=== PATIENT | female | born 1960 | race Caucasian/White ===

== ENCOUNTER 2019-06-17 10:44 | Emergency (ER) | payer MEDICARE, MEDICAID ==
--- NOTE | 2019-06-17 11:43 | EDM.PDOC ---
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 She felt she was going to faint. Over the next hour she became diaphoretic, lightheaded, nauseous and just felt "awful". She had no chest pressure or shortness of breath. She started to feel better but went into the clinic to get checked because it scared her, labs were drawn and an EKG done and she had inverted T waves in the lateral leads so was sent to the emergency room. Her electrolytes and CBC were reassuring. On arrival to the emergency room she was asymptomatic. She again emphasized that she had no chest pain or shortness of breath during this episode. She does have a previous EKG from 3 years ago which shows similar voltage, similar bundle branch block but the T- wave inversion in V5 and V6 is more pronounced. She is a "borderline" diabetic. Onset: Sudden (Symptoms started fairly suddenly 4 to 5 hours ago) Location: Reports: Generalized Associated Symptoms: Reports: Diaphoresis, Headaches (She did have a headache this morning, but she is a "headache person".), Malaise, Weakness. Denies: Chest Pain, Fever/Chills, Shortness of Breath - Related Data Allergies Allergy/AdvReac Type Severity Reaction Status Date / Time aspirin Allergy Cannot Verified 06/17/19 11:00 Remember bupropion HCl Allergy Cannot Verified 06/17/19 11:00 [From Wellbutrin] Remember mirtazapine [From Remeron] Allergy Cannot Verified 06/17/19 11:00 Remember morphine Allergy Cannot Verified 06/17/19 11:00 Remember topiramate [From Topamax] Allergy Cannot Verified 06/17/19 11:00 Remember Home Meds: Home Meds Albuterol Sulfate [Proair Hfa] 8.5 gm IH QID PRN 01/10/16 [History] Albuterol [Proventil] 2.5 mg INH QIDRT PRN 01/10/16 [History] Carvedilol [Coreg] 25 mg PO DAILY 01/10/16 [History] Cholecalciferol (Vitamin D3) [Vitamin D3] 5,000 unit PO DAILY 01/10/16 [History] Ferrous Fumarate 324 mg PO DAILY 01/10/16 [History] Levothyroxine [Synthroid] 88 mcg PO ACBREAKFAST 01/10/16 [History] Loratadine [Claritin] 10 mg PO DAILY 01/10/16 [History] Melatonin 5 mg PO BEDTIME PRN 01/10/16 [History] Multivitamin [Chewable Multi Vitamin] 1 each PO DAILY 01/10/16 [History] Rizatriptan Benzoate [Maxalt] 10 mg PO ASDIRECTED PRN 01/10/16 [History] Sennosides [Senokot] 8.6 mg PO BEDTIME 01/10/16 [History] Venlafaxine [Effexor] 75 mg PO DAILY 01/10/16 [History] Vitamin B Complex [B-100 Complex] 1 each PO DAILY 01/10/16 [History] Diclofenac Sodium [Voltaren] 75 mg PO BIDMEALS 06/17/19 [History] Past Medical History HEENT History: Reports: Hard of Hearing, Impaired Vision Other HEENT History: wears glasses Cardiovascular History: Reports: Arrhythmia, Cardiomyopathy, High Cholesterol, Hypertension, SOB on Exertion, Other (See Below) Other Cardiovascular History: 2nd degree heart block Respiratory History: Reports: Asthma, COPD, Sleep Apnea, SOB, Other (See Below) Other Respiratory History: uses CPAP Gastrointestinal History: Reports: Chronic Constipation, Gastritis Genitourinary History: Reports: None LEGAL REFEREE History: Reports: Dysfunctional Uterine Bleeding Musculoskeletal History: Reports: Arthritis Neurological History: Reports: Migraines Psychiatric History: Reports: Anxiety, Depression, Panic Attack Endocrine/Metabolic History: Reports: Hypothyroidism, Obesity/BMI 30+, Vitamin D Deficiency Hematologic History: Reports: B12 Deficiency, Iron Deficiency - Infectious Disease History Infectious Disease History: Reports: Chicken Pox, Measles, Mumps - Past Surgical History Head Surgeries/Procedures: Reports: None HEENT Surgical History: Reports: None Cardiovascular Surgical History: Reports: None Respiratory Surgical History: Reports: None GI Surgical History: Reports: Bariatric Procedure, Cholecystectomy, Colonoscopy , EGD, Esophageal Dilatation Female Surgical History: Reports: Hysterectomy, Salpingo-Oophorectomy, Other (See Below) Endocrine Surgical History: Reports: None Neurological Surgical History: Reports: None Musculoskeletal Surgical History: Reports: Arthroscopic Knee, Carpal Tunnel Dermatological Surgical History: Reports: None Social & Family History - Family History Family Medical History: Noncontributory - Tobacco Use Smoking Status *Q: Current Every Day Smoker Years of Tobacco use: 35 Packs/Tins Daily: 0.5 Used Tobacco, but Quit: No Second Hand Smoke Exposure: No - Caffeine Use Caffeine Use: Reports: Coffee - Recreational Drug Use Recreational Drug Use: No ED ROS GENERAL - Review of Systems Review Of Systems: See Below Constitutional: Denies: Fever, Chills HEENT: Denies: Vision Change Respiratory: Denies: Shortness of Breath Cardiovascular: Denies: Chest Pain Endocrine: Reports: Fatigue GI/Abdominal: Reports: Nausea. Denies: Vomiting Skin: Reports: Diaphoresis Neurological: Reports: Dizziness Psychiatric: Reports: No Symptoms ED EXAM, GENERAL - Physical Exam Exam: See Below Exam Limited By: No Limitations General Appearance: Alert, No Apparent Distress Eye Exam: Bilateral Eye: Normal Inspection Respiratory/Chest: No Respiratory Distress, Lungs Clear Cardiovascular: Regular Rate, Rhythm. No: Tachycardia, Extra Beats GI/Abdominal: Soft, Non-Tender Extremities: Normal Inspection. No: Pedal Edema Neurological: Alert, Oriented Course - Vital Signs Last Recorded V/S: Last Vital Signs Temp 96.6 F 06/17/19 11:16 Pulse 58 L 06/17/19 12:13 Resp 14 06/17/19 12:13 BP 180/91 H 06/17/19 12:20 Pulse Ox 92 L 06/17/19 11:32 - Orders/Labs/Meds Labs: Laboratory Tests 06/17/19 Range/Units 11:45 Troponin I < 0.017 (0.000-0.056) ng/mL - Re-Assessments/Exams Free Text/Narrative Re-Assessment/Exam: 06/17/19 11:43 EKG and labs from the clinic were reviewed, troponin was drawn here in the emergency room and patient was kept on cardiac monitoring. 06/17/19 12:23 Patient remained in a mild sinus bradycardia, was asymptomatic and her troponin was 0. previous EKGs from 3 years ago were not significantly different. No need for hospitalization at this time, she can increase activity as tolerated and return if symptoms recur. Departure - Departure Time of Disposition: 12:29 Disposition: Home, Self-Care 01 Clinical Impression: Vasovagal near-syncope Instructions: Near-Syncope, [id number] Referrals: Miriam Aguilar MD [Primary Care Provider] - Forms: ED Department Discharge Care Plan Goals: Continue current medications, increase activity as tolerated and return if symptoms are recurring or persistent. Rest today.
[2019-06-17 12:14] VITALS: PULSE 58
[2019-06-17 12:21] VITALS: BP 180/91
== END 2019-06-17 12:29 | disposition home or self-care (01) ==
LOC: JP.ED 10:44
DX: R55 Syncope and collapse (principal); E78.00 Pure hypercholesterolemia, unspecified; I10 Essential (primary) hypertension; J44.9 Chronic obstructive pulmonary disease, unspecified; F41.9 Anxiety disorder, unspecified; F32.9 Major depressive disorder, single episode, unspecified; E03.9 Hypothyroidism, unspecified; F17.210 Nicotine dependence, cigarettes, uncomplicated; Z79.82 Long term (current) use of aspirin; Z88.5 Allergy status to narcotic agent; Z88.8 Allergy status to other drugs, medicaments and biological substances; Z79.899 Other long term (current) drug therapy
CPT/HCPCS: 36415; 84484; 99284

== ENCOUNTER 2019-06-17 20:55 | Emergency (ER) | payer MEDICARE, MEDICAID ==
[2019-06-17] MEDS ORDERED: Sodium Chloride 0.9% 1,000 ML IV SCH (23:15)
[2019-06-18] MEDS ORDERED: Ondansetron 4 MG/2 ML SDV IVPUSH ONE (00:02)
--- NOTE | 2019-06-18 00:02 | EDM.PDOC ---
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 The whole week has been very hot. She still is feeling dizzy and shakey. She was seen at the clinic and then later at the [facility] by Dr Gil. She had a trop and was watched and was advised to hydrate. This evening she was still very shakey so she did come back. Onset: Gradual Duration: Hour(s): Location: Reports: Chest Associated Symptoms: Reports: Diaphoresis, Weakness, Other ( slight nausea. ) Headache Pain Score (Numeric/FACES): 7 - Related Data Allergies Allergy/AdvReac Type Severity Reaction Status Date / Time aspirin Allergy Cannot Verified 06/17/19 11:00 Remember bupropion HCl Allergy Cannot Verified 06/17/19 11:00 [From Wellbutrin] Remember mirtazapine [From Remeron] Allergy Cannot Verified 06/17/19 11:00 Remember morphine Allergy Cannot Verified 06/17/19 11:00 Remember topiramate [From Topamax] Allergy Cannot Verified 06/17/19 11:00 Remember Home Meds: Home Meds Albuterol Sulfate [Proair Hfa] 8.5 gm IH QID PRN 01/10/16 [History] Albuterol [Proventil] 2.5 mg INH QIDRT PRN 01/10/16 [History] Carvedilol [Coreg] 25 mg PO DAILY 01/10/16 [History] Cholecalciferol (Vitamin D3) [Vitamin D3] 5,000 unit PO DAILY 01/10/16 [History] Ferrous Fumarate 324 mg PO DAILY 01/10/16 [History] Levothyroxine [Synthroid] 88 mcg PO ACBREAKFAST 01/10/16 [History] Loratadine [Claritin] 10 mg PO DAILY 01/10/16 [History] Melatonin 5 mg PO BEDTIME PRN 01/10/16 [History] Multivitamin [Chewable Multi Vitamin] 1 each PO DAILY 01/10/16 [History] Rizatriptan Benzoate [Maxalt] 10 mg PO ASDIRECTED PRN 01/10/16 [History] Sennosides [Senokot] 8.6 mg PO BEDTIME 01/10/16 [History] Venlafaxine [Effexor] 75 mg PO DAILY 01/10/16 [History] Vitamin B Complex [B-100 Complex] 1 each PO DAILY 01/10/16 [History] Diclofenac Sodium [Voltaren] 75 mg PO BIDMEALS 06/17/19 [History] Past Medical History HEENT History: Reports: Hard of Hearing, Impaired Vision Other HEENT History: wears glasses Cardiovascular History: Reports: Arrhythmia, Cardiomyopathy, High Cholesterol, Hypertension, SOB on Exertion, Other (See Below) Other Cardiovascular History: 2nd degree heart block Respiratory History: Reports: Asthma, COPD, Sleep Apnea, SOB, Other (See Below) Other Respiratory History: uses CPAP Gastrointestinal History: Reports: Chronic Constipation, Gastritis Genitourinary History: Reports: None FAMILY SERVICE AIDE History: Reports: Dysfunctional Uterine Bleeding Musculoskeletal History: Reports: Arthritis Neurological History: Reports: Migraines Psychiatric History: Reports: Anxiety, Depression, Panic Attack Endocrine/Metabolic History: Reports: Hypothyroidism, Obesity/BMI 30+, Vitamin D Deficiency Hematologic History: Reports: B12 Deficiency, Iron Deficiency - Infectious Disease History Infectious Disease History: Reports: Chicken Pox, Measles, Mumps - Past Surgical History Head Surgeries/Procedures: Reports: None HEENT Surgical History: Reports: None Cardiovascular Surgical History: Reports: None Respiratory Surgical History: Reports: None GI Surgical History: Reports: Bariatric Procedure, Cholecystectomy, Colonoscopy , EGD, Esophageal Dilatation Female Surgical History: Reports: Hysterectomy, Salpingo-Oophorectomy, Other (See Below) Endocrine Surgical History: Reports: None Neurological Surgical History: Reports: None Musculoskeletal Surgical History: Reports: Arthroscopic Knee, Carpal Tunnel Dermatological Surgical History: Reports: None Social & Family History - Family History Family Medical History: Noncontributory - Tobacco Use Smoking Status *Q: Current Every Day Smoker Years of Tobacco use: 38 Packs/Tins Daily: 0.5 Used Tobacco, but Quit: No - Caffeine Use Caffeine Use: Reports: Coffee - Recreational Drug Use Recreational Drug Use: No ED ROS GENERAL - Review of Systems Review Of Systems: See Below Constitutional: Reports: Malaise, Weakness, Decreased Appetite HEENT: Reports: No Symptoms Respiratory: Reports: No Symptoms Cardiovascular: Reports: No Symptoms Endocrine: Reports: No Symptoms GI/Abdominal: Reports: Nausea : Reports: No Symptoms Musculoskeletal: Reports: No Symptoms Skin: Reports: No Symptoms ED EXAM, GENERAL - Physical Exam Exam: See Below Free Text/Narrative:: pt arrived feeling dizzy and fatiqued. She was quite shakey. She was mildly nauseated but had not vomited. Exam Limited By: No Limitations General Appearance: Alert, No Apparent Distress, Other (pupils are equal and reactive. ) Ears: Normal TMs Nose: Normal Inspection Throat/Mouth: Normal Inspection Head: Atraumatic Neck: Normal Inspection Respiratory/Chest: No Respiratory Distress Cardiovascular: Regular Rate, Rhythm GI/Abdominal: Soft, Non-Tender (Female) Exam: Deferred Rectal (Female) Exam: Deferred Back Exam: Normal Inspection Extremities: Normal Inspection Neurological: Alert, Oriented, Normal Cognition Course - Vital Signs Last Recorded V/S: Last Vital Signs Temp 35.9 C 06/18/19 00:20 Pulse 61 06/18/19 00:20 Resp 14 06/18/19 00:20 BP 145/87 H 06/18/19 00:20 Pulse Ox 97 06/18/19 00:20 Orthostatic Blood Pressure [ 167/91 Standing] Orthostatic Blood Pressure [ 164/89 Sitting] Orthostatic Blood Pressure [ 159/83 Supine] - Orders/Labs/Meds Orders: Active Orders 24 hr Category Date Time Status Sodium Chloride 0.9% [Normal Saline] 1,000 ml Med 06/17/19 23:15 Active IV ASDIRECTED Sodium Chloride 0.9% [Normal Saline] 1,000 ml Med 06/18/19 00:15 Active IV ASDIRECTED Medication Orders Sodium Chloride (Normal Saline) 1,000 mls @ 999 mls/hr IV ASDIRECTED ANSELMO Last Admin: 06/17/19 23:14 Dose: 999 mls/hr Sodium Chloride (Normal Saline) 1,000 mls @ 999 mls/hr IV ASDIRECTED ANSELMO Last Admin: 06/18/19 00:16 Dose: 999 mls/hr Labs: Laboratory Tests 06/17/19 06/17/19 06/17/19 Range/Units 21:58 21:58 21:59 WBC 6.6 (4.5-11.0) K/uL RBC 4.48 (3.30-5.50) M/uL Hgb 14.1 (12.0-15.0) g/dL Hct 43.0 (36.0-48.0) % MCV 96 (80-98) fL MCH 32 H (27-31) pg MCHC 33 (32-36) % Plt Count 229 (150-400) K/uL Neut % (Auto) 42 (36-66) % Lymph % (Auto) 47 H (24-44) % Swift % (Auto) 8 H (2-6) % Eos % (Auto) 2 (2-4) % Baso % (Auto) 1 (0-1) % Sodium 141 (140-148) mmol/L Potassium 3.9 (3.6-5.2) mmol/L Chloride 106 (100-108) mmol/L Carbon Dioxide 24 (21-32) mmol/L Anion Gap 10.8 (5.0-14.0) mmol/L BUN 13 (7-18) mg/dL Creatinine 0.9 (0.6-1.0) mg/dL Est Cr Clr Drug Dosing 53.23 mL/min Estimated GFR (MDRD) > 60 (>60) Glucose 96 (74-106) mg/dL Calcium 9.3 (8.5-10.1) mg/dL Total Bilirubin 0.3 (0.2-1.0) mg/dL AST 18 (15-37) U/L ALT 24 (12-78) U/L Alkaline Phosphatase 131 H (46-116) U/L Troponin I (0.000-0.056) ng/mL C-Reactive Protein 0.10 (0.0-0.3) mg/dL Total Protein 7.1 (6.4-8.2) g/dL Albumin 3.6 (3.4-5.0) g/dL Globulin 3.5 (2.3-3.5) g/dL Albumin/Globulin Ratio 1.0 L (1.2-2.2) Urine Color Urine Appearance Urine pH (4.5-8.0) Ur Specific [place] (1.008-1.030) Urine Protein (NEGATIVE) mg/dL Urine Glucose (UA) (NEGATIVE) mg/dL Urine Ketones (NEGATIVE) mg/dL Urine Occult Blood (NEGATIVE) Urine Nitrite (NEGATIVE) Urine Bilirubin (NEGATIVE) Urine Urobilinogen (NORMAL) mg/dL Ur Leukocyte Esterase (NEGATIVE) Urine RBC (0-5) Urine WBC (0-5) Ur Epithelial Cells Amorphous Sediment Urine Bacteria Urine Mucus 06/17/19 06/17/19 Range/Units 22:05 22:22 WBC (4.5-11.0) K/uL RBC (3.30-5.50) M/uL Hgb (12.0-15.0) g/dL Hct (36.0-48.0) % MCV (80-98) fL MCH (27-31) pg MCHC (32-36) % Plt Count (150-400) K/uL Neut % (Auto) (36-66) % Lymph % (Auto) (24-44) % Swift % (Auto) (2-6) % Eos % (Auto) (2-4) % Baso % (Auto) (0-1) % Sodium (140-148) mmol/L Potassium (3.6-5.2) mmol/L Chloride (100-108) mmol/L Carbon Dioxide (21-32) mmol/L Anion Gap (5.0-14.0) mmol/L BUN (7-18) mg/dL Creatinine (0.6-1.0) mg/dL Est Cr Clr Drug Dosing mL/min Estimated GFR (MDRD) (>60) Glucose (74-106) mg/dL Calcium (8.5-10.1) mg/dL Total Bilirubin (0.2-1.0) mg/dL AST (15-37) U/L ALT (12-78) U/L Alkaline Phosphatase (46-116) U/L Troponin I < 0.017 (0.000-0.056) ng/mL C-Reactive Protein (0.0-0.3) mg/dL Total Protein (6.4-8.2) g/dL Albumin (3.4-5.0) g/dL Globulin (2.3-3.5) g/dL Albumin/Globulin Ratio (1.2-2.2) Urine Color Yellow Urine Appearance Clear Urine pH 6.0 (4.5-8.0) Ur Specific [place] 1.015 (1.008-1.030) Urine Protein Negative (NEGATIVE) mg/dL Urine Glucose (UA) Normal (NEGATIVE) mg/dL Urine Ketones Negative (NEGATIVE) mg/dL Urine Occult Blood Negative (NEGATIVE) Urine Nitrite Negative (NEGATIVE) Urine Bilirubin Negative (NEGATIVE) Urine Urobilinogen Normal (NORMAL) mg/dL Ur Leukocyte Esterase Negative (NEGATIVE) Urine RBC 0-5 (0-5) Urine WBC 0-5 (0-5) Ur Epithelial Cells Rare Amorphous Sediment Not seen Urine Bacteria Rare Urine Mucus Not seen Meds: Medications Generic Name Dose Route Start Last Admin Trade Name Freq PRN Reason Stop Dose Admin Sodium Chloride 1,000 mls @ 999 mls/hr 06/17/19 23:15 06/17/19 23:14 Normal Saline IV 999 mls/hr ASDIRECTED ANSELMO Administration Sodium Chloride 1,000 mls @ 999 mls/hr 06/18/19 00:15 06/18/19 00:16 Normal Saline IV 999 mls/hr ASDIRECTED ANSELMO Administration Discontinued Medications Generic Name Dose Route Start Last Admin Trade Name Freq PRN Reason Stop Dose Admin Ondansetron HCl 4 mg 06/18/19 00:02 Zofran IVPUSH 06/18/19 00:03 ONETIME ONE - Re-Assessments/Exams Free Text/Narrative Re-Assessment/Exam: 06/18/19 01:15 pt was felt to be mildly dehydrated. She was given 2 liters of fluid. she is feeling better at this time. Her repeat trop was normal. Departure - Departure Time of Disposition: 01:06 Disposition: Home, Self-Care 01 Condition: Fair Clinical Impression: Dehydration after exertion - Discharge Information Referrals: Miriam Aguilar MD [Primary Care Provider] - Forms: ED Department Discharge Care Plan Goals: push fluids, no work for the next 2 days. - My Orders Last 24 Hours: My Active Orders 06/17/19 23:15 Sodium Chloride 0.9% [Normal Saline] 1,000 ml IV ASDIRECTED 06/18/19 00:15 Sodium Chloride 0.9% [Normal Saline] 1,000 ml IV ASDIRECTED - Assessment/Plan Last 24 Hours: My Active Orders 06/17/19 23:15 Sodium Chloride 0.9% [Normal Saline] 1,000 ml IV ASDIRECTED 06/18/19 00:15 Sodium Chloride 0.9% [Normal Saline] 1,000 ml IV ASDIRECTED
[2019-06-18] MEDS ORDERED: Sodium Chloride 0.9% 1,000 ML IV SCH (00:15)
[2019-06-18 00:21] VITALS: BP 145/87; PULSE 61
== END 2019-06-18 01:25 | disposition home or self-care (01) ==
LOC: JP.ED 20:55
DX: E86.0 Dehydration (principal); E78.00 Pure hypercholesterolemia, unspecified; I10 Essential (primary) hypertension; J44.9 Chronic obstructive pulmonary disease, unspecified; F17.210 Nicotine dependence, cigarettes, uncomplicated; F41.9 Anxiety disorder, unspecified; F32.9 Major depressive disorder, single episode, unspecified; Z88.8 Allergy status to other drugs, medicaments and biological substances; Z79.899 Other long term (current) drug therapy; R55 Syncope and collapse; E03.9 Hypothyroidism, unspecified; Z79.82 Long term (current) use of aspirin; Z88.5 Allergy status to narcotic agent
CPT/HCPCS: 36415; 80053; 81001; 84484; 85025; 86140; 96360; 96361; 99283; 99284; J7030

== ENCOUNTER 2021-06-13 20:14 | Emergency (ER) | payer MEDICARE, MEDICAID ==
[2021-06-13 20:36] VITALS: BP 137/70; PULSE 69
--- NOTE | 2021-06-13 21:18 | EDM.PDOC ---
ED HPI GENERAL MEDICAL PROBLEM - General Chief Complaint: Gastrointestinal Problem Stated Complaint: BACK ACHE/STOMACHE PAIN Time Seen by Provider: 06/13/21 21:18 Source of Information: Reports: Patient History Limitations: Reports: No Limitations - History of Present Illness INITIAL COMMENTS - FREE TEXT/NARRATIVE: Patient presents emergency room today because of increasing abdominal pain she says she has had issues of constipation over the last week or so she started a clear liquid diet light meals at that time reports that she had no bowel movement last week so she went to the walk-in clinic on Saturday pain is primarily abdominal into her back she did have x-rays and a urinalysis completed that she states stated showed she had some constipation so she was started on MiraLAX she also has Bentyl at home which she has used for nominal cramping. She also took a bottle of mag citrate yesterday states that she has not had any results from using this and today she used the MiraLAX 3 times she has had a small meshlike bowel movement this morning but nothing further this afternoon she also states that she quit having cramps and has not really had any gas she does not have any vomiting secondary to history of [place] but she does feel full and like she does not want to eat patient also states that she feels like she has a fissure that has developed. She came to the emergency room because of concerns for obstruction PMH/Meds--reviewed in EMR Allergies--bupropion, mirtazapine, morphine, topiramate Onset: Gradual back pain Pain Score (Numeric/FACES): 8 - Related Data Allergies Allergy/AdvReac Type Severity Reaction Status Date / Time bupropion HCl Allergy Irritabilit Verified 06/13/21 20:59 [From Wellbutrin] y mirtazapine [From Remeron] Allergy Hallucinati Verified 06/13/21 20:59 ons morphine Allergy Anaphylactic Verified 06/13/21 20:59 Shock topiramate [From Topamax] Allergy Cannot Verified 06/17/19 11:00 Remember Home Meds: Home Meds Albuterol Sulfate [Proair Hfa] 8.5 gm IH QID PRN 01/10/16 [History] Albuterol [Proventil] 2.5 mg INH QIDRT PRN 01/10/16 [History] Cholecalciferol (Vitamin D3) [Vitamin D3] 5,000 unit PO DAILY 01/10/16 [History] Ferrous Fumarate 324 mg PO ASDIRECTED 01/10/16 [History] Levothyroxine [Synthroid] 88 mcg PO ACBREAKFAST 01/10/16 [History] Loratadine [Claritin] 10 mg PO DAILY 01/10/16 [History] Melatonin 5 mg PO BEDTIME PRN 01/10/16 [History] Multivitamin [Chewable Multi Vitamin] 1 each PO DAILY 01/10/16 [History] Rizatriptan Benzoate [Maxalt] 10 mg PO ASDIRECTED PRN 01/10/16 [History] Sennosides [Senokot] 8.6 mg PO BEDTIME 01/10/16 [History] Venlafaxine [Effexor] 75 mg PO DAILY 01/10/16 [History] Vitamin B Complex [B-100 Complex] 1 each PO DAILY 01/10/16 [History] carvediloL [Coreg] 25 mg PO DAILY 01/10/16 [History] Diclofenac Sodium [Voltaren] 75 mg PO BIDMEALS 06/17/19 [History] Eplerenone [Inspra] 25 mg PO DAILY 06/13/21 [History] Furosemide [Lasix] 20 mg PO BID 06/13/21 [History] Losartan [Cozaar] 100 mg PO DAILY 06/13/21 [History] Rosuvastatin [Crestor] 5 mg PO DAILY 06/13/21 [History] Past Medical History HEENT History: Reports: Impaired Vision, Other (See Below) Other HEENT History: wears glasses Cardiovascular History: Reports: Arrhythmia, Cardiomyopathy, High Cholesterol, Hypertension, SOB on Exertion, Other (See Below) Other Cardiovascular History: 2nd degree heart block Respiratory History: Reports: Asthma, COPD, Sleep Apnea, SOB, Other (See Below) Other Respiratory History: uses CPAP Gastrointestinal History: Reports: Chronic Constipation, Gastritis Genitourinary History: Reports: None DESIGN DRAFTER History: Reports: Dysfunctional Uterine Bleeding Musculoskeletal History: Reports: Arthritis Neurological History: Reports: Migraines Psychiatric History: Reports: Anxiety, Depression, Panic Attack, PTSD, Suicide Attempt Endocrine/Metabolic History: Reports: Hypothyroidism, Obesity/BMI 30+, Vitamin D Deficiency Hematologic History: Reports: B12 Deficiency, Iron Deficiency - Infectious Disease History Infectious Disease History: Reports: Chicken Pox, Measles, Mumps - Past Surgical History Head Surgeries/Procedures: Reports: None Cardiovascular Surgical History: Reports: None, Other (See Below) Other Cardiovascular Surgeries/Procedures: Pacer/Defib Respiratory Surgical History: Reports: None GI Surgical History: Reports: Bariatric Procedure, Cholecystectomy, Colonoscopy, EGD, Esophageal Dilatation Female Surgical History: Reports: Hysterectomy, Salpingo-Oophorectomy, Other (See Below) Other Female Surgeries/Procedures: vaginal bleeding excessive Endocrine Surgical History: Reports: None Neurological Surgical History: Reports: None Musculoskeletal Surgical History: Reports: Arthroscopic Knee, Carpal Tunnel Dermatological Surgical History: Reports: None Social & Family History - Family History Family Medical History: No Pertinent Family History - Tobacco Use Tobacco Use Status *Q: Current Every Day Tobacco User Years of Tobacco use: 5 Packs/Tins Daily: 1 - Caffeine Use Caffeine Use: Reports: Coffee - Recreational Drug Use Recreational Drug Use: No ED ROS GENERAL - Review of Systems Review Of Systems: Comprehensive ROS is negative, except as noted in HPI. Constitutional: Reports: Decreased Appetite. Denies: Fever, Chills HEENT: Reports: No Symptoms Respiratory: Reports: No Symptoms Cardiovascular: Reports: No Symptoms Endocrine: Reports: No Symptoms GI/Abdominal: Reports: Abdominal Pain, Constipation, Decreased Appetite. Denies: Nausea, Stool Incontinence, Vomiting : Reports: No Symptoms Musculoskeletal: Reports: No Symptoms Skin: Reports: No Symptoms Neurological: Reports: No Symptoms Psychiatric: Reports: No Symptoms Hematologic/Lymphatic: Reports: No Symptoms Immunologic: Reports: No Symptoms ED EXAM, GI/ABD - Physical Exam Exam: See Below Exam Limited By: No Limitations General Appearance: Alert, WD/WN, Moderate Distress, Obese Eyes: Bilateral: Normal Appearance, EOMI Ears: Normal External Exam Nose: Normal Inspection Throat/Mouth: Normal Inspection, Normal Voice, No Airway Compromise Head: Atraumatic, Normocephalic Neck: Normal Inspection, Supple, Non-Tender, Full Range of Motion Respiratory/Chest: No Respiratory Distress, Lungs Clear, Normal Breath Sounds, N o Accessory Muscle Use Cardiovascular: Normal Peripheral Pulses, Regular Rate, Rhythm, No Edema, No Murmur GI/Abdominal Exam: Soft, Tender (mild diffuse, no focal areas noted), Abnormal Bowel Sounds (hypoactive in nature, primarily active in RLQ). No: Guarding, Rigid, Rebound (Female) Exam: Deferred Rectal (Female) Exam: Deferred Back Exam: Normal Inspection Extremities: Normal Inspection, Normal Range of Motion, No Pedal Edema, Normal Capillary Refill Neurological: Alert, Oriented, Normal Cognition, Normal Gait, No Motor/Sensory Deficits Psychiatric: Normal Affect, Normal Mood Skin Exam: Warm, Dry, Intact, Normal Color Course - Vital Signs Text/Narrative:: Cussed with patient and family at bedside today's ER findings as well as recommendations and further care with marked constipation does have some mild renal insufficiency with a mild elevation of creatinine at 1.2 no acute findings of concern were noted recommended that she continue with MiraLAX as previously instructed other option includes use of GoLYTELY prep for colonoscopy for complete bowel evacuation she verbalized understanding and agreement with plan of care ready for discharge Last Recorded V/S: Last Vital Signs Temp 97.6 F 06/13/21 20:40 Pulse 69 06/13/21 20:40 Resp 16 06/13/21 20:40 BP 137/70 06/13/21 20:40 Pulse Ox 96 06/13/21 20:40 - Orders/Labs/Meds Orders: Active Orders 24 hr Category Date Time Status Sodium Chloride 0.9% [Normal Saline] 82 ml Med 06/13/21 22:30 Active IV ASDIRECTED Sodium Chloride 0.9% [Saline Flush] Med 06/13/21 21:47 Active 10 ml FLUSH ASDIRECTED PRN Saline Lock Insert [OM.PC] Routine Oth 06/13/21 21:47 Ordered Medication Orders Sodium Chloride (Normal Saline) 82 mls @ 3.5 mls/sec IV ASDIRECTED ANSELMO Last Admin: 06/13/21 23:00 Dose: 3 mls/sec Documented by: ANASTASIIA Sodium Chloride (Sodium Chloride 0.9% 10 Ml Syringe) 10 ml FLUSH ASDIRECTED PRN PRN Reason: Keep Vein Open Last Admin: 06/13/21 22:16 Dose: 10 ml Documented by: MILLIE Labs: Laboratory Tests 06/13/21 06/13/21 Range/Units 22:06 22:06 WBC 7.2 (4.5-11.0) K/uL RBC 3.93 (3.30-5.50) M/uL Hgb 13.1 (12.0-15.0) g/dL Hct 38.7 (36.0-48.0) % MCV 99 H (80-98) fL MCH 33 H (27-31) pg MCHC 34 (32-36) % Plt Count 207 (150-400) K/uL Neut % (Auto) 44.1 (36-66) % Lymph % (Auto) 45.3 H (24-44) % [place] % (Auto) 6.3 H (2-6) % Eos % (Auto) 3.9 (2-4) % Baso % (Auto) 0.4 (0-1) % Sodium 141 (140-148) mmol/L Potassium 4.2 (3.6-5.2) mmol/L Chloride 104 (100-108) mmol/L Carbon Dioxide 29 (21-32) mmol/L Anion Gap 8.0 (5.0-14.0) mmol/L BUN 14 (7-18) mg/dL Creatinine 1.2 H (0.6-1.0) mg/dL Est Cr Clr Drug Dosing 38.94 mL/min Estimated GFR (MDRD) 46 L (>60) Glucose 92 (74-106) mg/dL Calcium 8.6 (8.5-10.1) mg/dL Total Bilirubin 0.4 (0.2-1.0) mg/dL AST 23 (15-37) U/L ALT 33 (12-78) U/L Alkaline Phosphatase 115 (46-116) U/L Total Protein 6.8 (6.4-8.2) g/dL Albumin 3.5 (3.4-5.0) g/dL Globulin 3.3 (2.3-3.5) g/dL Albumin/Globulin Ratio 1.1 L (1.2-2.2) Amylase 44 (25-115) U/L Lipase 103 (73-393) U/L Meds: Medications Generic Name Dose Route Start Last Admin Trade Name Freq PRN Reason Stop Dose Admin Sodium Chloride 82 mls @ 3.5 mls/sec 06/13/21 22:30 06/13/21 23:00 Normal Saline IV 3 mls/sec ASDIRECTED ANSELMO Administration Sodium Chloride 10 ml 06/13/21 21:47 06/13/21 22:16 Sodium Chloride 0.9% 10 Ml Syringe FLUSH 10 ml ASDIRECTED PRN Administration Keep Vein Open Discontinued Medications Generic Name Dose Route Start Last Admin Trade Name Freq PRJasmine Reason Stop Dose Admin Fentanyl 25 mcg 06/13/21 23:17 06/13/21 23:25 Fentanyl 100 Mcg/2 Ml Sdv IVPUSH 06/13/21 23:18 25 mcg ONETIME ONE Administration Iopamidol 140 ml 06/13/21 22:27 06/13/21 22:59 Iopamidol 612 Mg/Ml 500 Ml Multipack Bottle IV 06/13/21 22:28 140 ml ONETIME ONE Administration Ondansetron HCl 4 mg 06/13/21 23:18 06/13/21 23:25 Ondansetron 4 Mg/2 Ml Sdv IVPUSH 06/13/21 23:19 4 mg ONETIME ONE Administration Sodium Chloride 10 ml 06/13/21 22:27 06/13/21 22:59 Sodium Chloride 0.9% 10 Ml Syringe FLUSH 06/13/21 22:28 10 ml ONETIME ONE Administration - Radiology Interpretation Free Text/Narrative:: CT abd/pelvis with contrast--CT abdomen pelvis noted for moderate amount of feces in colon no evidence of bowel obstruction there are multiple bilateral lower lobe pulmonary nodules and a CT of the chest is recommended as can be completed on an outpatient basis CT Results Date: 06/13/21 CT Results Time: 23:41 Departure - Departure Time of Disposition: 23:47 Disposition: Home, Self-Care 01 Condition: Good Clinical Impression: Constipation - Discharge Information *PRESCRIPTION DRUG MONITORING PROGRAM REVIEWED*: Not Applicable *COPY OF PRESCRIPTION DRUG MONITORING REPORT IN PATIENT JESÚS: Not Applicable Instructions: Constipation, Adult Referrals: Mercedes aCrrillo MD [Primary Care Provider] - Forms: ED Department Discharge Additional Instructions: Is recommended that you increase your water fluid intake as you are noted to have some mild dehydration/increase in your creatinine function which is a measure of your kidneys Is recommended that you continue with MiraLAX as previously prescribed or you may obtain a bottle of GoLYTELY colon prep that is used for colonoscopy studies for bowel cleansing Continued concerns follow-up with your primary care provider in the next 2 to 3 days you may also want to discuss referral to gastroenterology Sepsis Event Note (ED) - Evaluation Sepsis Screening Result: No Definite Risk - Focused Exam Vital Signs: Vital Signs Temp Pulse Resp BP Pulse Ox 06/13/21 20:40 97.6 F 69 16 137/70 96 06/13/21 20:34 97.6 F 69 16 137/70 96 - My Orders Last 24 Hours: My Active Orders 06/13/21 21:47 Sodium Chloride 0.9% [Saline Flush] 10 ml FLUSH ASDIRECTED PRN Saline Lock Insert [OM.PC] Routine 06/13/21 22:30 Sodium Chloride 0.9% [Normal Saline] 82 ml IV ASDIRECTED - Assessment/Plan Last 24 Hours: My Active Orders 06/13/21 21:47 Sodium Chloride 0.9% [Saline Flush] 10 ml FLUSH ASDIRECTED PRN Saline Lock Insert [OM.PC] Routine 06/13/21 22:30 Sodium Chloride 0.9% [Normal Saline] 82 ml IV ASDIRECTED
[2021-06-13] MEDS ORDERED: Sodium Chloride 0.9% 10 ML Syringe FLUSH PRN (21:47)
[2021-06-13] MEDS ORDERED: Sodium Chloride 0.9% 10 ML Syringe FLUSH ONE (22:27)
[2021-06-13] MEDS ORDERED: Iopamidol 612 MG/ML 500 ML Multipack Bottle IV ONE (22:27)
[2021-06-13] MEDS ORDERED: fentaNYL 100 MCG/2 ML SDV IVPUSH ONE (23:17)
[2021-06-13] MEDS ORDERED: Ondansetron 4 MG/2 ML SDV IVPUSH ONE (23:18)
--- NOTE | 2021-06-13 23:35 | CRLCT ---
For Patients: As a result of the Century Cures Act, medical imaging exams and procedure reports are released immediately into your electronic medical record. You may view this report before your referring provider. If you have questions, please contact your health care provider. INDICATION: Constipation for 1 week TECHNIQUE: CT abdomen and pelvis acquired with 140 cc Isovue 370 IV contrast. COMPARISON: January 13, 2016 FINDINGS: Lower chest: AICD wires partially visualized. 0.4 cm subpleural pulmonary nodule right lower lobe image 5 0.3 cm right lower lobe pulmonary nodule image 2 series 2. 4 mm left lower lobe pulmonary nodule image 9 series 2. Liver: Hepatic steatosis. Spleen: Unremarkable. Pancreas: Unremarkable. Gallbladder and bile ducts: S/p cholecystectomy. Adrenal glands: Unremarkable. Kidneys: Unremarkable. GI tract: Status post gastric surgery. Moderate amount of feces in the colon. Vascular structures: Mild atherosclerotic calcification. Lymph nodes: Unremarkable. Miscellaneous: Unremarkable. No free air or significant free fluid. Pelvic Organs: Status post hysterectomy. Bones: Unremarkable for age. IMPRESSION: Moderate amount of feces in the colon. No evidence for bowel obstruction. Multiple bilateral lower lobe pulmonary nodules. Recommend chest CT for full evaluation of the lung parenchyma. Hepatic steatosis. Status post cholecystectomy and gastric surgery. Status post hysterectomy. Please note that all CT scans at this facility use dose modulation, iterative reconstruction, and/or weight-based dosing when appropriate to reduce radiation dose to as low as reasonably achievable. Dictated by Mercedes Sena MD @ 06/13/2021 11:33:[address] Mercedes Sena @ Jun 13 2021 11:33PM
== END 2021-06-14 00:06 | disposition home or self-care (01) ==
LOC: JP.ED 20:14
DX: K59.00 Constipation, unspecified (principal); E78.00 Pure hypercholesterolemia, unspecified; I10 Essential (primary) hypertension; J44.9 Chronic obstructive pulmonary disease, unspecified; M19.90 Unspecified osteoarthritis, unspecified site; E03.9 Hypothyroidism, unspecified; E66.9 Obesity, unspecified; Z68.37 Body mass index [BMI] 37.0-37.9, adult; Z72.0 Tobacco use; Z88.8 Allergy status to other drugs, medicaments and biological substances; Z88.5 Allergy status to narcotic agent; Z79.899 Other long term (current) drug therapy
CPT/HCPCS: 36415; 74177; 80053; 82150; 83690; 85025; 96374; 96375; 99284; J2405; J3010; Q9967

== ENCOUNTER 2023-07-21 15:01 | Emergency (ER) | payer MEDICARE, MEDICAID ==
[2023-07-21 15:41] VITALS: BP 105/53; PULSE 74
[2023-07-21] MEDS ORDERED: fentaNYL 100 MCG/2 ML SDV IM ONE (16:00)
== END 2023-07-21 17:04 | disposition home or self-care (01) ==
LOC: JP.ED 15:01
DX: M25.561 Pain in right knee (principal); I11.0 Hypertensive heart disease with heart failure; I50.9 Heart failure, unspecified; E78.00 Pure hypercholesterolemia, unspecified; J44.9 Chronic obstructive pulmonary disease, unspecified; E03.9 Hypothyroidism, unspecified; E66.9 Obesity, unspecified; Z95.0 Presence of cardiac pacemaker; Z88.5 Allergy status to narcotic agent; Z88.8 Allergy status to other drugs, medicaments and biological substances; Z68.39 Body mass index [BMI] 39.0-39.9, adult; Z79.899 Other long term (current) drug therapy; Z72.0 Tobacco use; W10.2XXA Fall (on)(from) incline, initial encounter
CPT/HCPCS: 73562; 96372; 99283; J3010